=== PATIENT | male | born 1950 | race Caucasian/White ===

== ENCOUNTER → 2020-08-20 17:32 | Outpatient (CLI) | payer MEDICARE, SELFPAY ==
--- NOTE | 2020-08-20 | DI.MRI.S_ITS ---
PROCEDURE: MR SHOULDER LT WO CON INDICATIONS: pain in left shoulder TECHNIQUE: Noncontrast oblique coronal T2 fast spin echo with fat saturation, oblique sagittal T1 spin echo and T2 fast spin echo with fat saturation, axial T1 spin echo and T2 fast spin echo with fat saturation through the shoulder. COMPARISON: None. FINDINGS: Image quality: Excellent. Rotator cuff: There is full thickness tear of the supraspinatus tendon. No tendon retraction. There is partial-thickness tear of the subscapularis tendon. The infraspinatus appears intact throughout. Sagittal images demonstrate no supraspinatus muscle atrophy. Bones and bursae: No bone marrow contusions or fractures. 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 The acromion demonstrates conventional anatomy, without an os acromiale. There is subacromial-subdeltoid bursal fluid consistent with bursitis. Capsule and soft tissues: There is SLAP tear of the superior labrum. Degenerative labral fraying is present. The long head of the biceps tendon demonstrates thickening, irregularity and increased signal consistent with tendinitis. The rotator interval appears normal, without fibrosis. The coracohumeral ligament is normal in thickness. IMPRESSION: 1. Full thickness tear of the supraspinatus tendon. No tendon retraction or supraspinatus muscle atrophy. 2. Partial thickness tear of the subscapularis tendon. 3. SLAP tear of the superior labrum. 4. Generalized degenerative labral fraying. 5. 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 6. Subacromial-subdeltoid bursitis. 7. Tendinitis of the long head of the biceps tendon. Dictated by: Ana Escalera M.D. on 08/21/2020 at 9:07 Approved by: Ana Escalera M.D. on 08/21/2020 at 11:07
== END ==
PROVIDERS: PCP Family Medicine; Referring Provider Family Medicine; Visit Provider Family Medicine
DX: M25.512 Pain in left shoulder (principal); M75.122 Complete rotator cuff tear or rupture of left shoulder, not specified as traumatic; S43.432A Superior glenoid labrum lesion of left shoulder, initial encounter; M19.012 Primary osteoarthritis, left shoulder; M75.52 Bursitis of left shoulder; M75.22 Bicipital tendinitis, left shoulder
CPT/HCPCS: 73221